=== PATIENT | male | born 1975 | race Caucasian/White ===

== ENCOUNTER 2025-02-16 08:06 | Inpatient (IN) | payer MEDICAID ==
[~2025-02-16] VITALS: Ht 175.3 cm; Wt 141.1 kg
[~2025-02-16 08:06] MED LIST: AMLO10TA80 PO; AMOX1TAB16 MT; ASPI-1406 PO; ATOR20TA65 PO; CETI10TA6 PO; FLUO60TA PO; GABA800T97 PO; LISI20TA31 PO; METF-416 MT; METR-167 MT; OLAN10TA72 PO; PROT40 MT
[2025-02-16 08:12] VITALS: O2SAT 98
[2025-02-16] MEDS: KETOROLAC 30MG/ML VIAL IM STA (08:35)
[2025-02-16 08:54] LABS: HEMATOCRIT. 31.9 % (42.0-52.0); HEMOGLOBIN. 10.4 g/dL (14.0-18.0); MEAN CORPUSCULAR HEMOGLOBIN 26.8 pg (28.0-32.0); MEAN CORPUSCULAR HGB CONC 32.6 g/dL (31.0-37.0); MEAN CORPUSCULAR VOLUME 82.3 fL (80.0-94.0); MEAN PLATELET VOLUME 7.4 fl (7.4-10.4); PLATELET 498 x1000/uL (130-400); RED BLOOD CELL COUNT 3.87 mill/uL (4.7-6.1); RED CELL DISTRIBUTION WIDTH 14.4 % (11.6-14.6); WHITE BLOOD COUNT 7.4 x1000/uL (4.5-11.0)
[2025-02-16 08:55] LABS: DIFFERENTIAL COMMENT 1
[2025-02-16 09:03] LABS: CARBON DIOXIDE 26 mEq/L (21-32); CHLORIDE 98 mEq/L (98-107); POTASSIUM 4.8 mEq/L (3.5-5.1); PROTHROMBIN TIME 10.6 sec (9.6-11.0); SODIUM 130 mEq/L (136-145)
[2025-02-16 09:04] LABS: CALCIUM 8.9 mg/dL (8.7-10.4)
[2025-02-16 09:09] LABS: UREA NITROGEN BLOOD 15 mg/dL (9-23)
[2025-02-16 09:19] LABS: PLATELET ESTIMATE INCREASED
[2025-02-16 09:24] LABS: GLUCOSE 584 mg/dL (70-105)
[2025-02-16] MEDS: INSULIN REGULAR (HUMULIN R) 1000UNITS/10ML VIAL SUBCUT NR (09:57)
[2025-02-16] MEDS ORDERED: PIPERACILLIN/TAZO 3.375G/50ML 50 ML IV SCH (14:00)
[2025-02-16] MEDS ORDERED: ONDANSETRON HCL 4MG/2ML INJ IV PRN (14:45)
[2025-02-16] MEDS ORDERED: CLONIDINE 0.1MG TABLET PO PRN (14:45)
[2025-02-16] MEDS ORDERED: DEXTROSE 50% WATER 50ML SYRINGE IV PRN (14:45)
[2025-02-16] MEDS ORDERED: ACETAMINOPHEN 325MG TABLET PO PRN (14:45)
[2025-02-16] MEDS ORDERED: DOCUSATE SODIUM 100MG CAPSULE PO PRN (14:45)
[2025-02-16] MEDS ORDERED: IPRATROPIUM/ALBUTEROL 0.5-3(2.5)MG/3ML NEB HHN PRN (15:00)
[2025-02-16] MEDS: VANCOMYCIN 2GM PMX (XELLIA) 400 ML IV NR (15:16)
[2025-02-16 16:00] VITALS: BP 137/75; PULSE 82; RESP 20; TEMP 36.4; O2SAT 95
[2025-02-16] MEDS: HYDROCODONE/ACETAMINOPHEN 5/325MG TABLET PO PRN (16:41)
[2025-02-16] MEDS: SODIUM CHLORIDE 0.9% 1,000 ML IV SCH (16:42)
[2025-02-16] MEDS: PANTOPRAZOLE SODIUM 40 MG/VIAL IV SCH (16:43)
[2025-02-16] MEDS: BLOOD SUGAR DIAGNOSTIC STRIP TEST SCH (17:28)
[2025-02-16 17:44] LABS: BETA HYDROXYBUTYRATE 0.1 mMol/L (0.0-0.3); CREATINE KINASE 98 IU/L (46-171)
[2025-02-16 17:47] LABS: VITAMIN B12 SERUM 556 pg/mL (211-911)
[2025-02-16 17:48] LABS: FERRITIN 189 ng/mL (22-322); FOLIC ACID (FOLATE) SERUM > 20.00 ng/mL (>5.38)
[2025-02-16 17:57] LABS: IRON 37 ug/dL (65-175)
[2025-02-16 18:00] LABS: TOTAL IRON BINDING CAPACITY 180 ug/dl (250-425)
[2025-02-16] MEDS: INSULIN LISPRO 100 UNITS/ML SUBCUT SCH (18:18)
[2025-02-16 19:09] VITALS: BP 137/75; PULSE 82; RESP 20; TEMP 36.4
[2025-02-16 20:00] VITALS: BP 118/57; PULSE 87; RESP 18; TEMP 36.6; O2SAT 99
[2025-02-16] MEDS: INSULIN GLARGINE 100 UNITS/ML SUBCUT SCH (21:44)
[2025-02-16] MEDS: PIPERACILLIN/TAZO 3.375G/50ML 50 ML IV SCH (22:23)
[2025-02-16 22:42] LABS: CLARITY URINE CLEAR (CLEAR); COLOR URINE YELLOW (YELLOW); GLUCOSE URINE NEGATIVE (NEGATIVE); KETONES URINE NEGATIVE (NEGATIVE); LEUKOCYTE ESTERASE URINE NEGATIVE (NEGATIVE); NITRITE URINE NEGATIVE (NEGATIVE); OCCULT BLOOD URINE NEGATIVE (NEGATIVE); PROTEIN URINE NEGATIVE (NEGATIVE); SPECIFIC GRAVITY URINE 1.026 (1.005-1.030); UROBILINOGEN URINE 0.2 E.U./dL (0.2-1.0)
[2025-02-16 23:04] LABS: *AMPHETAMINES SCREEN URINE PRESUMPTIVE POSITIVE (NEGATIVE); *BARBITURATES SCREEN URINE NEGATIVE (NEGATIVE); *BENZODIAZEPINES SCREEN URINE NEGATIVE (NEGATIVE); *COCAINE SCREEN URINE NEGATIVE (NEGATIVE); CANNABINOID URINE SCREEN PRESUMPTIVE POSITIVE (NEGATIVE); ECSTASY MDMA SCREEN URINE NEGATIVE (NEGATIVE); METHADONE URINE SCREEN NEGATIVE (NEGATIVE); OPIATES URINE SCREEN PRESUMPTIVE POSITIVE (NEGATIVE); PHENCYCLIDINE URINE SCREEN NEGATIVE (NEGATIVE)
[2025-02-16] MEDS: VANCOMYCIN 1G PREMIX 200 ML IV SCH (23:15)
[2025-02-17] VITALS: BP_SYST 120; BP_SYST 122; BP_DIAS 56; BP_DIAS 58; PULSE 82; RESP 18; TEMP 36.4; O2SAT 94
[2025-02-17 04:00] VITALS: BP 122/56; PULSE 82; RESP 18; TEMP 36.4; O2SAT 94
[2025-02-17 06:35] LABS: BASOPHILS % 0.4 % (0.0-2.0); EOSINOPHILS % 3.1 % (0.0-5.0); HEMOGLOBIN. 10.2 g/dL (14.0-18.0); LYMPHOCYTES % 21.8 % (20.0-50.0); MEAN CORPUSCULAR HEMOGLOBIN 27.6 pg (28.0-32.0); MEAN CORPUSCULAR HGB CONC 33.8 g/dL (31.0-37.0); MEAN CORPUSCULAR VOLUME 81.5 fL (80.0-94.0); MEAN PLATELET VOLUME 6.9 fl (7.4-10.4); MONOCYTES % 14.9 % (2.0-8.0); NEUTROPHILS % 59.8 % (40.0-76.0); PLATELET 467 x1000/uL (130-400); RED BLOOD CELL COUNT 3.69 mill/uL (4.7-6.1); RED CELL DISTRIBUTION WIDTH 14.2 % (11.6-14.6); WHITE BLOOD COUNT 7.3 x1000/uL (4.5-11.0)
[2025-02-17 06:50] LABS: CHLORIDE 97 mEq/L (98-107); POTASSIUM 4.5 mEq/L (3.5-5.1); SODIUM 132 mEq/L (136-145)
[2025-02-17 06:51] LABS: CALCIUM 8.6 mg/dL (8.7-10.4); CARBON DIOXIDE 26 mEq/L (21-32)
[2025-02-17 06:55] LABS: UREA NITROGEN BLOOD 8 mg/dL (9-23)
[2025-02-17 06:56] LABS: CREATININE 0.7 mg/dL (0.6-1.3)
[2025-02-17 06:58] LABS: ALANINE AMINOTRANSFERASE 9 IU/L (10-49); ALBUMIN 3.3 g/dL (3.2-4.8); ASPARTATE AMINOTRANSFERASE 9 IU/L (<34); BILIRUBIN DIRECT 0.1 mg/dL (<=3.0)
[2025-02-17 06:59] LABS: BILIRUBIN TOTAL 0.3 mg/dL (0.1-1.0); INR 1.1; PHOSPHORUS 4.3 mg/dL (2.5-4.9); PROTEIN TOTAL 5.8 g/dL (6.0-8.3); PROTHROMBIN TIME 11.3 sec (9.6-11.0)
[2025-02-17 07:06] LABS: GLUCOSE 267 mg/dL (70-105)
[2025-02-17 08:00] VITALS: BP 142/77; PULSE 82; RESP 19; TEMP 36.6; O2SAT 95
[2025-02-17 12:00] VITALS: BP 106/55; PULSE 73; RESP 19; TEMP 36.7; O2SAT 97
[2025-02-17] MEDS: VANCOMYCIN 1.25GM/250ML 250 ML IV SCH (13:45)
[2025-02-17 16:00] VITALS: BP 136/66; PULSE 71; RESP 19; TEMP 36.6; O2SAT 96
[2025-02-17] MEDS: MAGNESIUM 4 G PREMIX 100 ML IV SCH (16:06)
[2025-02-17 20:00] VITALS: BP 111/41; PULSE 71; RESP 18; TEMP 36.6; O2SAT 98
[2025-02-17] MEDS: MAGNESIUM 2 G PREMIX 50 ML IV SCH (20:53)
[2025-02-18] VITALS: BP 121/49; PULSE 78; RESP 18; TEMP 36.7; O2SAT 96
[2025-02-18 04:00] VITALS: BP 120/63; PULSE 74; RESP 18; TEMP 36.6; O2SAT 98
[2025-02-18 06:02] LABS: BASOPHILS % 0.6 % (0.0-2.0); EOSINOPHILS % 4.2 % (0.0-5.0); HEMATOCRIT. 31.5 % (42.0-52.0); HEMOGLOBIN. 10.2 g/dL (14.0-18.0); LYMPHOCYTES % 32.2 % (20.0-50.0); MEAN CORPUSCULAR HEMOGLOBIN 26.6 pg (28.0-32.0); MEAN CORPUSCULAR HGB CONC 32.4 g/dL (31.0-37.0); MEAN CORPUSCULAR VOLUME 82.2 fL (80.0-94.0); MEAN PLATELET VOLUME 7.2 fl (7.4-10.4); MONOCYTES % 14.4 % (2.0-8.0); NEUTROPHILS % 48.6 % (40.0-76.0); PLATELET 521 x1000/uL (130-400); RED BLOOD CELL COUNT 3.83 mill/uL (4.7-6.1); RED CELL DISTRIBUTION WIDTH 14.1 % (11.6-14.6); WHITE BLOOD COUNT 5.4 x1000/uL (4.5-11.0)
[2025-02-18 06:19] LABS: CARBON DIOXIDE 30 mEq/L (21-32); CHLORIDE 98 mEq/L (98-107); POTASSIUM 4.3 mEq/L (3.5-5.1); SODIUM 134 mEq/L (136-145)
[2025-02-18 06:20] LABS: CALCIUM 8.8 mg/dL (8.7-10.4)
[2025-02-18 06:22] LABS: VANCOMYCIN TROUGH 18.8 ug/mL (5.0-10.0)
[2025-02-18 06:25] LABS: CREATININE 0.8 mg/dL (0.6-1.3); GLUCOSE 285 mg/dL (70-105); UREA NITROGEN BLOOD 7 mg/dL (9-23)
[2025-02-18 08:00] VITALS: BP 113/64; PULSE 71; RESP 19; TEMP 36.8; O2SAT 97
[2025-02-18 12:00] VITALS: BP 102/55; PULSE 70; RESP 19; TEMP 37.1; O2SAT 97
[2025-02-18 16:00] VITALS: BP 115/57; PULSE 75; RESP 19; TEMP 36.6; O2SAT 97
[2025-02-18 20:00] VITALS: BP 119/43; PULSE 69; RESP 18; TEMP 36.6; O2SAT 97
[2025-02-19] VITALS: BP 126/69; PULSE 72; RESP 18; TEMP 36.4; O2SAT 98
[2025-02-19 04:00] VITALS: BP 135/64; PULSE 78; RESP 17; TEMP 36.5; O2SAT 94
[2025-02-19 08:00] VITALS: BP 123/75; PULSE 83; RESP 20; TEMP 36.7; O2SAT 95
[2025-02-19] MEDS: FAMOTIDINE 20MG/2ML VIAL IV SCH (09:00)
[2025-02-19 12:00] VITALS: BP 145/71; PULSE 76; RESP 20; TEMP 36.4; O2SAT 94
[2025-02-19] MEDS: MICAFUNGIN 100 MG in SODIUM CHLORIDE 0.9% 100 ML IV SCH (14:33)
[2025-02-19] MEDS ORDERED: NALOXONE HCL 0.4MG/ML VIAL IV PRN (15:00)
[2025-02-19 16:00] VITALS: BP 133/70; PULSE 80; RESP 20; TEMP 36.7; O2SAT 96
[2025-02-19] MEDS: PIPERACILLIN/TAZO 3.375G/50ML 50 ML IV SCH (16:18)
[2025-02-19 20:00] VITALS: BP 122/80; PULSE 81; RESP 20; TEMP 36.9; O2SAT 97
[2025-02-19] MEDS: INSULIN GLARGINE 100 UNITS/ML SUBCUT SCH (21:14)
[2025-02-20] VITALS: BP 139/80; PULSE 78; RESP 18; TEMP 36.7; O2SAT 98
[2025-02-20 04:00] VITALS: BP 133/69; RESP 20; TEMP 36.9
[2025-02-20 08:07] VITALS: BP 120/60; PULSE 80; RESP 20; TEMP 36.1; O2SAT 95
[2025-02-20 12:10] VITALS: BP 132/56; RESP 20; TEMP 36.7; O2SAT 96
[2025-02-20 16:00] VITALS: BP 117/65; PULSE 97; RESP 20; TEMP 36.2; O2SAT 97
[2025-02-20 20:00] VITALS: BP 94/53; PULSE 68; RESP 17; TEMP 36.3; O2SAT 98
[2025-02-21] VITALS: BP 116/40; PULSE 65; RESP 17; TEMP 36.2; O2SAT 97
[2025-02-21 04:00] VITALS: BP 101/67; PULSE 61; RESP 17; TEMP 36.2; O2SAT 98
[2025-02-21 08:00] VITALS: BP 115/65; PULSE 67; RESP 21; TEMP 36.6; O2SAT 96
[2025-02-21 12:00] VITALS: BP 138/49; PULSE 74; RESP 18; TEMP 36.1; O2SAT 97
[2025-02-21 16:00] VITALS: BP 106/68; PULSE 74; RESP 19; TEMP 36.4; O2SAT 94
[2025-02-21 20:00] VITALS: BP 118/70; PULSE 73; RESP 20; TEMP 36.3; O2SAT 97
[2025-02-21] MEDS: ACETAMINOPHEN 325MG TABLET PO PRN (22:06)
[2025-02-22] VITALS: BP 112/68; PULSE 83; RESP 20; TEMP 36.2; O2SAT 98
[2025-02-22 04:00] VITALS: BP 121/69; PULSE 75; RESP 20; TEMP 36.2; O2SAT 100
[2025-02-22 12:00] VITALS: BP 121/66; PULSE 86; RESP 18; TEMP 36.4; O2SAT 95
[2025-02-22] MEDS ORDERED: NALOXONE HCL 0.4MG/ML VIAL IV PRN (12:15)
[2025-02-22] MEDS: HYDROCODONE/ACETAMINOPHEN 5/325MG TABLET PO PRN (12:28)
[2025-02-22] MEDS ORDERED: LEVO750T68 MT (12:42)
[2025-02-22] MEDS ORDERED: FLUC200T51 MT (12:42)
[2025-02-22 16:00] VITALS: BP 120/63; PULSE 69; RESP 18; TEMP 36.2; O2SAT 97
[2025-02-22 18:21] VITALS: BP 120/63; PULSE 69; TEMP 97.2
[2025-02-22 18:32] VITALS: BP 120/63; PULSE 69; RESP 18
== END 2025-02-22 19:37 | disposition home health service (06) | DRG 721 ==
LOC: ER 08:06 → 8WST 12:09 → EDBEDREQ 14:31 → EDBEDREQTM 14:31 → ENRESERV 15:02 → 6EST 02-21 11:10
PROVIDERS: ADMIT Internal Medicine; ATTEND Internal Medicine
DX: T81.41XA Infection following a procedure, superficial incisional surgical site, initial encounter (principal); A41.9 Sepsis, unspecified organism; E87.1 Hypo-osmolality and hyponatremia; T81.31XA Disruption of external operation (surgical) wound, not elsewhere classified, initial encounter; B37.9 Candidiasis, unspecified; E11.9 Type 2 diabetes mellitus without complications; B95.1 Streptococcus, group B, as the cause of diseases classified elsewhere; B96.5 Pseudomonas (aeruginosa) (mallei) (pseudomallei) as the cause of diseases classified elsewhere; D64.9 Anemia, unspecified; I10 Essential (primary) hypertension; F19.10 Other psychoactive substance abuse, uncomplicated; E66.01 Morbid (severe) obesity due to excess calories; E66.9 Obesity, unspecified; F32.A Depression, unspecified; J45.909 Unspecified asthma, uncomplicated; F15.10 Other stimulant abuse, uncomplicated; E78.00 Pure hypercholesterolemia, unspecified; F17.200 Nicotine dependence, unspecified, uncomplicated; N20.0 Calculus of kidney; Y65.8 Other specified misadventures during surgical and medical care; Y92.89 Other specified places as the place of occurrence of the external cause
CPT/HCPCS: 36415; 74177; 80048; 80076; 80202; 80305; 81003; 82010; 82550; 82607; 82728; 82746; 82962; 83036; 83540; 83550; 83605; 83735; 83880; 84100; 84145; 85025; 86850; 86900; 87070; 87077; 87106; 87186; 96372; 99285; A4606; J1308; J1815; J1885; J2248; J2470; J2543; J3370; J3475; J7050

== ENCOUNTER 2025-09-12 02:34 | Emergency (ER) | payer MEDICAID ==
[~2025-09-12] VITALS: Ht 175.3 cm; Wt 150.0 kg
[~2025-09-12 02:34] MED LIST changes: -AMOX1TAB16 MT; +FLUC200T51 MT; +LEVO750T68 MT; -METR-167 MT
[2025-09-12 02:38] VITALS: O2SAT 99
[2025-09-12 03:54] LABS: BASOPHILS % 0.9 % (0.0-2.0); EOSINOPHILS % 1.6 % (0.0-5.0); HEMATOCRIT. 39.3 % (42.0-52.0); HEMOGLOBIN. 12.6 g/dL (14.0-18.0); LYMPHOCYTES % 22.5 % (20.0-50.0); MEAN PLATELET VOLUME 7.7 fl (7.4-10.4); MONOCYTES % 5.7 % (2.0-8.0); NEUTROPHILS % 69.3 % (40.0-76.0); PLATELET 308 x1000/uL (130-400); RED BLOOD CELL COUNT 4.64 mill/uL (4.7-6.1); RED CELL DISTRIBUTION WIDTH 14.1 % (11.6-14.6)
[2025-09-12 04:05] LABS: CREATININE 0.9 mg/dL (0.6-1.3)
[2025-09-12 04:06] LABS: ETHANOL BLOOD < 10 mg/dL (<10); PROTEIN TOTAL 6.4 g/dL (6.0-8.3); UREA NITROGEN BLOOD 15 mg/dL (9-23)
[2025-09-12 04:07] LABS: ASPARTATE AMINOTRANSFERASE 15 IU/L (<34)
[2025-09-12 04:08] LABS: BILIRUBIN DIRECT < 0.1 mg/dL (<=3.0); BILIRUBIN TOTAL 0.3 mg/dL (0.1-1.0)
[2025-09-12 04:22] LABS: CLARITY URINE CLEAR (CLEAR); COLOR URINE YELLOW (YELLOW); GLUCOSE URINE 3+ (NEGATIVE); KETONES URINE TRACE (NEGATIVE); LEUKOCYTE ESTERASE URINE NEGATIVE (NEGATIVE); NITRITE URINE NEGATIVE (NEGATIVE); OCCULT BLOOD URINE NEGATIVE (NEGATIVE); PH URINE 6.5 (4.5-8.0); PROTEIN URINE NEGATIVE (NEGATIVE); SPECIFIC GRAVITY URINE 1.023 (1.005-1.030); UROBILINOGEN URINE 0.2 E.U./dL (0.2-1.0)
[2025-09-12 04:35] LABS: *AMPHETAMINES SCREEN URINE NEGATIVE (NEGATIVE); *BARBITURATES SCREEN URINE NEGATIVE (NEGATIVE); *BENZODIAZEPINES SCREEN URINE NEGATIVE (NEGATIVE); *COCAINE SCREEN URINE NEGATIVE (NEGATIVE); CANNABINOID URINE SCREEN NEGATIVE (NEGATIVE); ECSTASY MDMA SCREEN URINE NEGATIVE (NEGATIVE); METHADONE URINE SCREEN NEGATIVE (NEGATIVE); OPIATES URINE SCREEN NEGATIVE (NEGATIVE); PHENCYCLIDINE URINE SCREEN NEGATIVE (NEGATIVE)
[2025-09-12 05:25] LABS: BACTERIA URINE NONE SEEN; RBC URINE 0-2 /hpf (0-2); SQUAMOUS EPITHELIAL CELL URINE NONE SEEN /lpf (RARE/1+); WBC URINE 0-2 /hpf (0-2)
[2025-09-12] MEDS ORDERED: HYDROXYZINE 25MG TABLET PO PRN (09:45)
[2025-09-12 14:22] VITALS: BP 155/83; PULSE 81; RESP 18; TEMP 36.7; O2SAT 99
[2025-09-12] MEDS ORDERED: OLANZAPINE 5MG TABLET ODT PO SCH (21:00)
[2025-09-12] MEDS ORDERED: MIRTAZAPINE 15MG TABLET PO SCH (21:00)
== END 2025-09-12 14:30 | disposition short-term general hospital (02) ==
LOC: ER 02:34
DX: R45.851 Suicidal ideations (principal); E11.9 Type 2 diabetes mellitus without complications; E78.00 Pure hypercholesterolemia, unspecified; F17.200 Nicotine dependence, unspecified, uncomplicated; F25.9 Schizoaffective disorder, unspecified; I10 Essential (primary) hypertension; J45.909 Unspecified asthma, uncomplicated; M19.90 Unspecified osteoarthritis, unspecified site; Z59.01 Sheltered homelessness; Z79.82 Long term (current) use of aspirin; Z79.84 Long term (current) use of oral hypoglycemic drugs; Z79.899 Other long term (current) drug therapy; Z91.199 Patient's noncompliance with other medical treatment and regimen due to unspecified reason; Z20.822 Contact with and (suspected) exposure to COVID-19
CPT/HCPCS: 36415; 80048; 80076; 80305; 80307; 80320; 80329; 81003; 82962; 85025; 87426; 99285; G0480